=== PATIENT | female | born 1990 | race African-American/Black ===

== ENCOUNTER 2018-01-16 20:54 | Inpatient (IN) | payer OTHER ==
[~2018-01-16] VITALS: Ht 170.2 cm; Wt 86.3 kg
[2018-01-16 20:56] VITALS: BP 119/65
[2018-01-16] MEDS ORDERED: PHENERGAN 25 MG25 M1 PO (21:10)
[2018-01-16] MEDS ORDERED: BUTALB-ACETAMI1 EACH PO (21:12)
[2018-01-16 21:32] LABS: URINE BLOOD 3+ (Negative); URINE CLARITY CLOUDY; URINE COLOR YELLOW; URINE GLUCOSE-RANDOM* TRACE (Negative); URINE KETONES TRACE (Negative); URINE LEUKOCYTES 2+ (Negative); URINE NITRITE NEGATIVE (Negative); URINE PROTEIN (DIPSTICK) 2+ (Negative); URINE SPECIFIC GRAVITY 1.025 (1.005-1.035); URINE UROBILINOGEN >= 8.0 E.U./dl (0.2-1.0)
[2018-01-16 21:34] LABS: HEMATOCRIT 26.9 % (37.0-47.0); HEMOGLOBIN 8.7 gm/dL (12.0-15.0); MCH 21.9 pg (26.0-34.0); MCHC 32.4 g/dL (28.0-37.0); MCV 67.6 fL (80.0-100.0); PLATELET COUNT 209 thou/uL (150-400); RBC 3.98 mil/uL (4.20-5.00); RDW 17.3 % (10.5-14.5); WBC 17.3 thou/uL (4.0-11.0)
[2018-01-16 21:45] LABS: ICTOTEST (BILI CONFIRMATORY) Negative (Negative); URINE BILIRUBIN NEGATIVE (Negative)
[2018-01-16 21:46] LABS: CASTS None Seen /LPF (None Seen); CRYSTALS None Seen /LPF (None Seen); SQUAMOUS 4-10 Moderate /LPF (0-3); URINE WBC 6-15 Few /HPF (0-5)
[2018-01-16 21:47] LABS: BACTERIA >30 Many /HPF (None Seen)
[2018-01-16 21:48] LABS: CALCIUM 9.7 mg/dL (8.5-10.1); CREATININE 1.5 mg/dL (0.6-1.0)
[2018-01-16 21:50] LABS: POTASSIUM 2.9 mmol/L (3.5-5.1)
[2018-01-16 21:53] LABS: ALBUMIN 3.2 g/dL (3.4-5.0); DIRECT BILIRUBIN 0.5 mg/dL (<0.1-0.3); TOTAL BILIRUBIN 1.2 mg/dL (<0.1-1.0); TOTAL PROTEIN 8.7 g/dL (6.4-8.2)
[2018-01-16 22:05] LABS: ABSOLUTE NEUTROPHILS 15.2 thou/uL (1.4-8.2); ANISOCYTOSIS 1+
[2018-01-16 22:07] LABS: HYPOCHROMASIA 1+; LARGE PLATELETS OCCASIONAL; MICROCYTES 2+; POLYCHROMASIA OCCASIONAL
[2018-01-16 23:23] VITALS: BP 116/74
[2018-01-16 23:55] VITALS: BP 109/52
[2018-01-17 05:33] LABS: HEMATOCRIT 23.3 % (37.0-47.0); HEMOGLOBIN 7.3 gm/dL (12.0-15.0); MCH 21.4 pg (26.0-34.0); MCHC 31.4 g/dL (28.0-37.0); MCV 68.2 fL (80.0-100.0); RBC 3.42 mil/uL (4.20-5.00); RDW 17.5 % (10.5-14.5); WBC 12.7 thou/uL (4.0-11.0)
[2018-01-17 05:37] LABS: ABSOLUTE RETIC COUNT 0.0332 10^6/uL; OBSERVED RETIC COUNT 0.97 % (0.6-2.6)
[2018-01-17 05:43] LABS: CALCIUM 8.3 mg/dL (8.5-10.1); CREATININE 0.9 mg/dL (0.6-1.0); POTASSIUM 3.5 mmol/L (3.5-5.1)
[2018-01-17 05:49] LABS: % SATURATION 2 % (20-39); IRON 6 ug/dL (50-170); TIBC 269 ug/dL (250-450)
[2018-01-17 06:16] LABS: FOLIC ACID 9.7 ng/mL (8.6-58.9)
[2018-01-17 08:52] VITALS: BP 123/59
[2018-01-17 15:55] VITALS: BP 120/61
[2018-01-17 19:16] VITALS: BP 118/62
[2018-01-18 04:45] LABS: HEMOGLOBIN 8.3 gm/dL (12.0-15.0); MCHC 31.9 g/dL (28.0-37.0)
[2018-01-18 04:47] LABS: MCH 21.8 pg (26.0-34.0); MCV 68.3 fL (80.0-100.0); PLATELET COUNT 218 thou/uL (150-400); RBC 3.81 mil/uL (4.20-5.00); RDW 17.7 % (10.5-14.5); WBC 9.1 thou/uL (4.0-11.0)
[2018-01-18 04:57] LABS: CALCIUM 8.9 mg/dL (8.5-10.1); CREATININE 0.9 mg/dL (0.6-1.0)
[2018-01-18 05:00] LABS: POTASSIUM 2.9 mmol/L (3.5-5.1)
[2018-01-18 05:10] LABS: ALBUMIN 2.8 g/dL (3.4-5.0); DIRECT BILIRUBIN 0.5 mg/dL (<0.1-0.3); TOTAL PROTEIN 8.4 g/dL (6.4-8.2)
[2018-01-18 05:22] LABS: ABSOLUTE NEUTROPHILS 6.5 thou/uL (1.4-8.2)
[2018-01-18 05:24] LABS: ANISOCYTOSIS 2+; BURR CELLS OCCASIONAL; HYPOCHROMASIA 1+; MICROCYTES 1+; OVALOCYTES OCCASIONAL
[2018-01-18 08:40] VITALS: BP 129/70
[2018-01-18 16:38] VITALS: BP 124/67
[2018-01-18 20:00] VITALS: BP 117/66
[2018-01-19 05:29] LABS: HEMOGLOBIN 7.3 gm/dL (12.0-15.0); MCV 67.5 fL (80.0-100.0); WBC 5.9 thou/uL (4.0-11.0)
[2018-01-19 05:33] LABS: HEMATOCRIT 22.2 % (37.0-47.0); MCHC 32.7 g/dL (28.0-37.0); PLATELET COUNT 237 thou/uL (150-400); RBC 3.29 mil/uL (4.20-5.00); RDW 17.6 % (10.5-14.5)
[2018-01-19 05:44] LABS: CALCIUM 8.7 mg/dL (8.5-10.1); CREATININE 0.8 mg/dL (0.6-1.0); POTASSIUM 3.2 mmol/L (3.5-5.1)
[2018-01-19 05:58] LABS: ABSOLUTE NEUTROPHILS 3.7 thou/uL (1.4-8.2)
[2018-01-19 05:59] LABS: ANISOCYTOSIS 1+; HYPOCHROMASIA 2+; MICROCYTES 2+; SCHISTOCYTES OCCASIONAL
[2018-01-19 08:00] VITALS: BP 119/65
[2018-01-19] MEDS ORDERED: LEVAQUIN 500 M500 M4 PO (09:50)
[2018-01-19] MEDS ORDERED: FERREX 150 FOR1 EAC1 PO (09:56)
[2018-01-19] MEDS ORDERED: NORCO 5-325 TA1 EACH PO (11:59)
[2018-01-19 12:35] VITALS: BP 119/65
== END 2018-01-19 14:02 | disposition home or self-care (01) | DRG 872 ==
LOC: ER 20:54 → EROBS 23:03 → 4W 23:03 → ENTRNSPT 01-19 13:55 → 4W 01-19 14:02
PROVIDERS: Hospitalist; Internal Medicine Gastroenterology; Nurse Practitioner Family; Obstetrics & Gynecology; Physician Assistant
DX: A41.9 Sepsis, unspecified organism (principal); N12 Tubulo-interstitial nephritis, not specified as acute or chronic; D64.9 Anemia, unspecified; E87.6 Hypokalemia; N92.0 Excessive and frequent menstruation with regular cycle; D50.9 Iron deficiency anemia, unspecified; Z79.899 Other long term (current) drug therapy
CPT/HCPCS: 10045

== ENCOUNTER 2019-05-27 20:21 | Emergency (ER) | payer OTHER ==
[~2019-05-27] VITALS: Ht 170.2 cm; Wt 74.8 kg
[~2019-05-27 20:21] MED LIST: BUTALB-ACETAMI1 EACH PO; FERREX 150 FOR1 EAC1 PO; LEVAQUIN 500 M500 M4 PO; NORCO 5-325 TA1 EACH PO; PHENERGAN 25 MG25 M1 PO
[2019-05-27 21:00] LABS: CALCIUM 9.3 mg/dL (8.5-10.1); CREATININE 0.8 mg/dL (0.6-1.0); POTASSIUM 3.3 mmol/L (3.5-5.1)
[2019-05-27 21:00] LABS: URINE BILIRUBIN NEGATIVE (Negative); URINE BLOOD NEGATIVE (Negative); URINE CLARITY CLEAR; URINE COLOR YELLOW; URINE GLUCOSE-RANDOM* NEGATIVE (Negative); URINE KETONES TRACE (Negative); URINE LEUKOCYTES-REFLEX NEGATIVE (Negative); URINE NITRITE-REFLEX NEGATIVE (Negative); URINE PROTEIN (DIPSTICK) NEGATIVE (Negative)
[2019-05-27 21:06] LABS: MCH 21.2 pg (26.0-34.0); MCHC 30.9 g/dL (28.0-37.0); MCV 68.7 fL (80.0-100.0); PLATELET COUNT 185 thou/uL (150-400); RBC 4.23 mil/uL (4.20-5.00); RDW 19.4 % (10.5-14.5); WBC 2.4 thou/uL (4.0-11.0)
[2019-05-27 21:07] LABS: ALBUMIN 3.8 g/dL (3.4-5.0); TOTAL BILIRUBIN 0.3 mg/dL (<0.1-1.0)
[2019-05-27 22:00] LABS: ABSOLUTE NEUTROPHILS 0.7 thou/uL (1.4-8.2); ANISOCYTOSIS 2+
[2019-05-27 22:01] LABS: HYPOCHROMASIA 1+; MICROCYTES 2+; POLYCHROMASIA OCCASIONAL
[2019-05-27 22:51] VITALS: BP 103/70
== END 2019-05-27 22:52 | disposition home or self-care (01) ==
LOC: ER 20:21
PROVIDERS: Physician Assistant
DX: J06.9 Acute upper respiratory infection, unspecified (principal); R10.32 Left lower quadrant pain